=== PATIENT | female | born 1935 | race Caucasian/White ===

== ENCOUNTER → 2016-07-25 | Outpatient (CLI) | payer MEDICARE, BC, OTHER ==
--- NOTE | 2016-07-25 20:09 | REPMRS ---
Patient History The patient states she has not had a clinical breast exam in over a year. Patient is postmenopausal. No known family history of cancer. Digital Woman Screen Mammo: July 25, 2016 - Exam #: [id number] Bilateral CC and MLO view(s) were taken. Technologist: Latoya Grissom, Technologist Prior study comparison: June 23, 2015, digital woman screen mammo performed at [facility] to [facility]. May 13, 2014, digital woman screen mammo performed at [facility]. May 12, 2013, digital woman screen mammo performed at [facility]. FINDINGS: The breast tissue is heterogeneously dense. This may lower the sensitivity of mammography. There is a moderate amount of heterogeneously dense fibroglandular tissue which is fairly symmetric. There is no interval development of dominant mass, architectural distortion, or clustered microcalcification typical of malignancy. There has been no change in the appearance of the mammogram from the prior studies. ASSESSMENT: BI-RADS/ACR category 1 mammogram. Negative. Recommendation Routine screening mammogram of both breasts in 1 year (for women over age 40). This mammogram was interpreted with the aid of an FDA-approved computer-aided dectection system. Electronically Signed By: Pacheco Solis MD 07/25/162007
--- NOTE | 2016-07-27 14:28 | DEXA ---
AP SPINE L1 - L4 0.991 -1.6 0.7 LT FEMUR TOTAL 0.740 -2.1 0.2 RT FEMUR TOTAL 0.730 -2.2 0.1 TOTAL BODY TOTAL OTHER DUAL FEMUR FRAX* ASSESSMENT Risk factors: History of fracture (adult). Secondary osteoporosis ( premature menopause). 10 year probability of fracture Major osteoporotic fracture 25.3 % Hip fracture 8.9 % COMMENTS: There is low bone density of the spine. There is low bone density of the left hip. There is osteoporosis of the right hip. Lumbar scoliosis. The density of the spine has increased 16.3% since the initial exam on 1999. The spine density has increased 4.1% since the most recent exam on 05/13/2014. The density of the left hip has decreased 2.0% since the initial exam on 1999. The density of the left hip has decreased 1.3% since the most recent exam on . The density of the right hip has increased 1.8% since the initial exam on 1999. The density of the right hip has increased 1.7% since the most recent exam on . FOLLOW-UP: Recommendation for the next bone density exam: 2 years. ELIZA
== END ==
LOC: M WHC 12:50
PROVIDERS: ATTEND Family Medicine
DX: Z12.31 Encounter for screening mammogram for malignant neoplasm of breast (principal); M81.0 Age-related osteoporosis without current pathological fracture
CPT/HCPCS: 77080; G0202

== ENCOUNTER → 2017-05-20 | Outpatient (REF) | payer MEDICARE, OTHER ==
[2017-05-20 23:08] LABS: INFLUENZA A AMPLIFICATION NEGATIVE (NEGATIVE); INFLUENZA B AMPLIFICATION NEGATIVE (NEGATIVE)
== END ==
LOC: M LAB REF 09:53
DX: J06.9 Acute upper respiratory infection, unspecified (principal)
CPT/HCPCS: 87502

== ENCOUNTER 2017-06-17 11:56 | Day surgery (SDC) | payer MEDICARE, BC, OTHER ==
[2017-06-17] MEDS ORDERED: LIDOCAINE 2% INJ 100 MG/5 ML SDV (FOR ANES.) As Ordered (12:56)
[2017-06-17] MEDS ORDERED: PROPOFOL 500 MG/50 ML VIAL As Ordered (12:56)
[2017-06-17] MEDS ORDERED: NS 1,000 ML IV (13:00)
== END 2017-06-17 14:09 | disposition home or self-care (01) ==
LOC: M OPP 11:56
DX: Z12.11 Encounter for screening for malignant neoplasm of colon (principal); K64.0 First degree hemorrhoids; K57.30 Diverticulosis of large intestine without perforation or abscess without bleeding; R13.10 Dysphagia, unspecified; K22.2 Esophageal obstruction; K44.9 Diaphragmatic hernia without obstruction or gangrene; I10 Essential (primary) hypertension; Z79.899 Other long term (current) drug therapy; Z79.82 Long term (current) use of aspirin; Z87.891 Personal history of nicotine dependence; Z90.710 Acquired absence of both cervix and uterus; Z88.0 Allergy status to penicillin; Z88.8 Allergy status to other drugs, medicaments and biological substances
CPT/HCPCS: G0121

== ENCOUNTER → 2017-08-07 | Outpatient (CLI) | payer MEDICARE, BC | LOC: M WHC 11:20 | DX: Z12.31 Encounter for screening mammogram for malignant neoplasm of breast (principal); Z78.0 Asymptomatic menopausal state; R92.1 Mammographic calcification found on diagnostic imaging of breast | CPT/HCPCS: 77067 ==

== ENCOUNTER → 2020-01-09 | Outpatient (REF) | payer MEDICARE, BC ==
[~2020-01-09] MED LIST: ASPI81TA26 PO; CALC600T57 PO; CLAR1TAB2 PO; FISH120012 PO; LOSA25TA14 PO; PRESCAP6 PO
[2020-01-09 21:26] LABS: APPEARANCE, URINE CLOUDY (CLEAR); BACTERIA, URINE AUTO NEGATIVE (NEGATIVE); BILIRUBIN, URINE AUTO NEGATIVE (NEGATIVE); BLOOD, URINE BLOOD NEGATIVE (NEGATIVE); COLOR, URINE YELLOW (YELLOW); GLUCOSE, URINE (UA) AUTO NEGATIVE (NEGATIVE); KETONE, URINE AUTO NEGATIVE (NEGATIVE); LEUKOCYTE ESTERASE, URINE AUTO 3+ (NEGATIVE); MUCUS, URINE SMALL (NEGATIVE); NITRITE, URINE AUTO NEGATIVE (NEGATIVE); PROTEIN, URINE AUTO NEGATIVE (NEGATIVE); RBC, URINE AUTO 4 /HPF (0-3); SPECIFIC GRAVITY URINE AUTO 1.021 (1.002-1.035); SQUAMOUS EPITHELIAL CELL UR AU 1 /HPF (0-6); TRANSITIONAL EPITHELIAL AUTO 2 /HPF; UROBILINOGEN, URINE AUTO 0.2 mg/dL (0.0-2.0); WBC, URINE AUTO TNTC /HPF (0-3)
== END ==
LOC: M LAB REF 16:30
PROVIDERS: ATTEND Physician Assistant Medical
DX: N39.0 Urinary tract infection, site not specified (principal)

== ENCOUNTER → 2020-08-10 | Outpatient (CLI) | payer MEDICARE, BC ==
--- NOTE | 2020-08-10 14:07 | DEXAMM ---
INDICATION: M85.9 DISORDER OF BONE DENSITY. COMPARISON: Multiple prior DEXA studies the most recent which is from August 07, 2018 and the most remote 02 December 2003.. TECHNIQUE: Bone density was measured using dual-energy x-ray absorptionmetry (DEXA). FINDINGS: AP SPINE L1-L4 BMD 0.983 g/cm2 Young Adult T-Score -1.7 Age Matched Z-Score 0.2. LT FEMUR, TOTAL BMD 0.712 g/cm2 Young Adult T-Score -2.4 Age Matched Z-Score -0.2. LT NECK BMD 0.661 g/cm2 Young Adult T-Score -2.7 Age Matched Z-Score -0.4. RT FEMUR, TOTAL BMD 0.692 g/cm2 Young Adult T-Score -2.5 Age Matched Z-Score -0.3. RT NECK BMD 0.658 g/cm2 Young Adult T-Score -2.7 Age Matched Z-Score -0.5. IMPRESSION: There is low bone density of the spine. There is osteoporosis of the left hip. There is osteoporosis of the right hip. The density of the spine has increased 15.4% since the initial exam on December 02, 2003. The density of the spine increased 2.3% since most recent exam on increased 2.3% August 07, 2018. The density of the left hip has decreased 5.7% since initial exam on December 02, 2003. The density of the left hip has decreased 0.8% since most recent exam on August 07, 2018. The density of the right hip has decreased 3.5% since the initial exam on December 02, 2003. The density of the right hip has decreased 4.2% since the most recent exam on August 07, 2018. FOLLOW-UP: Recommendation for the next bone density exam: 2 years. <Electronically signed by Pacheco Solis > 08/10/20 [id number]
== END ==
LOC: M WHC 11:18
PROVIDERS: ATTEND Family Medicine
DX: M81.0 Age-related osteoporosis without current pathological fracture (principal)

== ENCOUNTER → 2020-12-21 | Outpatient (REF) | payer MEDICARE, BC ==
[2020-12-21 16:46] LABS: APPEARANCE, URINE CLOUDY (CLEAR); BACTERIA, URINE AUTO NEGATIVE (NEGATIVE); BILIRUBIN, URINE AUTO NEGATIVE (NEGATIVE); BLOOD, URINE BLOOD 1+ (NEGATIVE); COLOR, URINE YELLOW (YELLOW); GLUCOSE, URINE (UA) AUTO NEGATIVE (NEGATIVE); KETONE, URINE AUTO TRACE mg/dL (NEGATIVE); LEUKOCYTE ESTERASE, URINE AUTO 3+ (NEGATIVE); MUCUS, URINE SMALL (NEGATIVE); NITRITE, URINE AUTO NEGATIVE (NEGATIVE); PROTEIN, URINE AUTO 1+ mg/dL (NEGATIVE); RBC, URINE AUTO 7 /HPF (0-3); SPECIFIC GRAVITY URINE AUTO 1.021 (1.002-1.035); SQUAMOUS EPITHELIAL CELL UR AU 0 /HPF (0-6); UROBILINOGEN, URINE AUTO 0.2 mg/dL (0.0-2.0); WBC, URINE AUTO TNTC /HPF (0-3)
== END ==
LOC: M LAB REF 16:12
PROVIDERS: ATTEND Physician Assistant Medical
DX: N39.0 Urinary tract infection, site not specified (principal)

== ENCOUNTER → 2021-07-21 | Outpatient (CLI) | payer MEDICARE, BC, OTHER ==
[~2021-07-21] MED LIST changes: +LOSA25TA13 PO; -LOSA25TA14 PO
[2021-07-21 17:32] LABS: BASO # 0.1 10^3/uL (0.0-0.2); BASO % 0.7 % (0.0-1.0); EOS # 0.1 10^3/uL (0.0-0.5); EOS % 0.9 % (0.0-3.0); HEMATOCRIT 36.1 % (36.0-47.0); HEMOGLOBIN 11.5 g/dl (12.0-15.5); LYMPH % 26.6 % (24.0-44.0); MEAN CORPUSCULAR HEMOGLOBIN 29.2 pg (27.0-33.0); MEAN CORPUSCULAR HGB CONC 31.9 g/dl (32.0-36.5); MEAN CORPUSCULAR VOLUME 91.6 fl (80.0-96.0); MONO # 0.9 10^3/uL (0.0-0.8); MONO % 11.7 % (2.0-8.0); NEUTROPHILS # 4.4 10^3/uL (1.5-8.5); NEUTROPHILS % 59.7 % (36.0-66.0); PLATELET COUNT, AUTOMATED 322 10^3/uL (150-450); RED BLOOD COUNT 3.94 10^6/uL (4.00-5.40); WHITE BLOOD COUNT 7.4 10^3/uL (4.0-10.0)
[2021-07-21 18:03] LABS: ALBUMIN 3.6 GM/DL (3.2-5.2); ALT/SGPT 19 U/L (12-78); BILIRUBIN,TOTAL 0.4 MG/DL (0.2-1.0); BLOOD UREA NITROGEN 16 MG/DL (7-18); CARBON DIOXIDE LEVEL 31 MEQ/L (21-32); CHLORIDE LEVEL 107 MEQ/L (98-107); CREATININE FOR GFR 0.61 MG/DL (0.55-1.30); GLOMERULAR FILTRATION RATE > 60.0 (>32); GLUCOSE, FASTING 84 MG/DL (70-100); NT-PRO BNP 404 PG/ML (<450); POTASSIUM SERUM 4.3 MEQ/L (3.5-5.1); SODIUM LEVEL 141 MEQ/L (136-145)
== END ==
LOC: M LAB 16:22
PROVIDERS: ATTEND Internal Medicine Cardiovascular Disease
DX: R53.82 Chronic fatigue, unspecified (principal); I35.8 Other nonrheumatic aortic valve disorders; I11.9 Hypertensive heart disease without heart failure; R07.2 Precordial pain; I49.3 Ventricular premature depolarization

== ENCOUNTER → 2021-07-24 | Outpatient (CLI) | payer MEDICARE, BC, OTHER | LOC: M RAD 08:47 | PROVIDERS: ATTEND Internal Medicine Cardiovascular Disease | DX: I11.9 Hypertensive heart disease without heart failure (principal) ==

== ENCOUNTER → 2021-08-02 | Outpatient (CLI) | payer MEDICARE, BC, OTHER | LOC: M LABSMTC 11:04 | PROVIDERS: ATTEND Internal Medicine Cardiovascular Disease | DX: Z11.52 Encounter for screening for COVID-19 (principal) ==

== ENCOUNTER → 2021-09-05 | Outpatient (CLI) | payer MEDICARE, BC, OTHER | LOC: M RAD 09:13 | PROVIDERS: ATTEND Family Medicine | DX: R09.89 Other specified symptoms and signs involving the circulatory and respiratory systems (principal); I25.10 Atherosclerotic heart disease of native coronary artery without angina pectoris ==

== ENCOUNTER → 2021-12-08 | Outpatient (CLI) | payer MEDICARE, BC, OTHER ==
[~2021-12-08] MED LIST changes: +ATOR1TAB21; +CARV3.12; +CLOP75TA2; +ISOVUE-370 76% 100ML VIAL As Ordered ONE; +LEVO25TA5; +OMEP40CA5; +SPIR-10
== END ==
LOC: M RAD 14:53
PROVIDERS: ATTEND Physician Assistant
DX: R91.8 Other nonspecific abnormal finding of lung field (principal)
CPT/HCPCS: 71275; Q9967

== ENCOUNTER → 2021-12-15 | Outpatient (CLI) | payer MEDICARE, BC, OTHER ==
[~2021-12-15] MED LIST changes: -ISOVUE-370 76% 100ML VIAL As Ordered ONE
== END ==
LOC: M CARPUL 10:20
PROVIDERS: ATTEND Physician Assistant
DX: I35.0 Nonrheumatic aortic (valve) stenosis (principal)

== ENCOUNTER → 2022-03-21 | Outpatient (CLI) | payer MEDICARE, BC, OTHER | LOC: M WHC 13:20 | PROVIDERS: ATTEND Family Medicine | DX: Z12.31 Encounter for screening mammogram for malignant neoplasm of breast (principal) ==

== ENCOUNTER → 2022-06-06 | Outpatient (CLI) | payer MEDICARE, BC, OTHER ==
[~2022-06-06] MED LIST changes: +CALC-190 PO; +ICAPCAP2; +LUTE1CAP7; +NITR0.4S14
== END ==
LOC: M LABSMTC 09:34
PROVIDERS: ATTEND Anesthesiology
DX: Z01.812 Encounter for preprocedural laboratory examination (principal); Z11.52 Encounter for screening for COVID-19

== ENCOUNTER 2022-06-11 12:42 | Day surgery (SDC) | payer MEDICARE, BC, OTHER ==
[~2022-06-11] VITALS: Ht 152.4 cm; Wt 45.3 kg
[~2022-06-11 12:42] MED LIST changes: +LIDOCAINE 2% 100MG/5ML SDV (FOR ANES.) As Ordered ONE; +NS 1,000 ML IV ONE; +propofoL 200 MG/20 ML VIAL As Ordered ONE
[2022-06-11 14:36] VITALS: BP 136/63
== END 2022-06-11 14:37 | disposition home or self-care (01) ==
LOC: M OPP 12:42
PROVIDERS: ATTEND Internal Medicine Gastroenterology
DX: K29.60 Other gastritis without bleeding (principal); R10.13 Epigastric pain; R13.10 Dysphagia, unspecified; I45.10 Unspecified right bundle-branch block; I10 Essential (primary) hypertension; E03.9 Hypothyroidism, unspecified; Z87.891 Personal history of nicotine dependence; Z95.5 Presence of coronary angioplasty implant and graft; Z79.02 Long term (current) use of antithrombotics/antiplatelets; Z79.82 Long term (current) use of aspirin; Z79.890 Hormone replacement therapy; Z79.899 Other long term (current) drug therapy; Z88.1 Allergy status to other antibiotic agents; Z88.8 Allergy status to other drugs, medicaments and biological substances

== ENCOUNTER → 2022-06-28 | Outpatient (CLI) | payer MEDICARE, BC, OTHER ==
[~2022-06-28] MED LIST changes: -LIDOCAINE 2% 100MG/5ML SDV (FOR ANES.) As Ordered ONE; -NS 1,000 ML IV ONE; -propofoL 200 MG/20 ML VIAL As Ordered ONE
== END ==
LOC: M SLEEP HO 10:55
PROVIDERS: ATTEND Internal Medicine Cardiovascular Disease
DX: I27.81 Cor pulmonale (chronic) (principal)

== ENCOUNTER 2022-07-12 13:37 | Emergency (ER) | payer MEDICARE, BC, OTHER ==
[~2022-07-12] VITALS: Ht 152.4 cm; Wt 45.5 kg
[2022-07-12] MEDS ORDERED: ISOVUE-370 76% 100ML VIAL As Ordered ONE (19:05)
[2022-07-12 19:37] LABS: BASO # 0.1 10^3/uL (0.0-0.2); BASO % 0.8 % (0.0-1.0); EOS # 0.1 10^3/uL (0.0-0.5); EOS % 1.3 % (0.0-3.0); HEMATOCRIT 35.4 % (36.0-47.0); HEMOGLOBIN 11.2 g/dl (12.0-15.5); LYMPH # 2.3 10^3/uL (1.5-5.0); MEAN CORPUSCULAR HEMOGLOBIN 29.2 pg (27.0-33.0); MEAN CORPUSCULAR HGB CONC 31.6 g/dl (32.0-36.5); MEAN CORPUSCULAR VOLUME 92.4 fl (80.0-96.0); MONO # 1.1 10^3/uL (0.0-0.8); MONO % 14.9 % (2.0-8.0); NEUTROPHILS % 52.6 % (36.0-66.0); PLATELET COUNT, AUTOMATED 284 10^3/uL (150-450); RED BLOOD COUNT 3.83 10^6/uL (4.00-5.40); WHITE BLOOD COUNT 7.7 10^3/uL (4.0-10.0)
[2022-07-12 19:56] LABS: ERYTHROCYTE SEDIMENTATION RATE 66 mm/hr (0-30)
[2022-07-12 20:04] LABS: ALBUMIN 3.6 G/DL (3.2-5.2); ALKALINE PHOSPHATASE 149 U/L (46-116); ALT/SGPT 27 U/L (7.0-40); AST/SGOT 43 U/L (<34); BILIRUBIN,DIRECT < 0.1 MG/DL (<0.4); BILIRUBIN,TOTAL 0.5 MG/DL (0.3-1.2); BLOOD UREA NITROGEN 22 MG/DL (9-23); CARBON DIOXIDE LEVEL 26 MMOL/L (20-31); CHLORIDE LEVEL 106 MMOL/L (98-107); CREATININE FOR GFR 0.63 MG/DL (0.55-1.30); GLOMERULAR FILTRATION RATE > 60.0 (>32); GLUCOSE, FASTING 90 MG/DL (74-106); POTASSIUM SERUM 4.9 MMOL/L (3.5-5.1); SODIUM LEVEL 141 MMOL/L (136-145); TOTAL PROTEIN 6.9 G/DL (5.7-8.2)
[2022-07-12 20:19] VITALS: BP 160/78
[2022-07-12] MEDS ORDERED: CLINDAMYCIN 150MG CAPSULE PO ONE (20:30)
[2022-07-12] MEDS ORDERED: ERYTHROMYCIN OPHTH OINT OD ONE (20:30)
[2022-07-12] MEDS ORDERED: ERYT5OIN25 OD (20:37)
[2022-07-12] MEDS ORDERED: CLEO300C2 PO (20:37)
== END 2022-07-12 21:24 | disposition home or self-care (01) ==
LOC: M ED 13:37
DX: L03.213 Periorbital cellulitis (principal); I10 Essential (primary) hypertension; E78.5 Hyperlipidemia, unspecified; K21.9 Gastro-esophageal reflux disease without esophagitis; E03.9 Hypothyroidism, unspecified; Z88.8 Allergy status to other drugs, medicaments and biological substances; Z88.1 Allergy status to other antibiotic agents; Z79.82 Long term (current) use of aspirin; Z79.899 Other long term (current) drug therapy

== ENCOUNTER 2023-06-04 18:41 | Emergency (ER) | payer MEDICARE, BC, OTHER ==
[~2023-06-04] VITALS: Ht 152.4 cm; Wt 44.5 kg
[~2023-06-04 18:41] MED LIST changes: +CLEO300C2 PO; +ERYT5OIN25 OD
[2023-06-04 22:32] LABS: BASO % 0.4 % (0.0-1.0); EOS # 0.1 10^3/uL (0.0-0.5); EOS % 0.8 % (0.0-3.0); HEMATOCRIT 33.9 % (36.0-47.0); HEMOGLOBIN 10.8 g/dl (12.0-15.5); LYMPH # 1.4 10^3/uL (1.5-5.0); LYMPH % 14.9 % (24.0-44.0); MEAN CORPUSCULAR HEMOGLOBIN 30.2 pg (27.0-33.0); MEAN CORPUSCULAR HGB CONC 31.9 g/dl (32.0-36.5); MEAN CORPUSCULAR VOLUME 94.7 fl (80.0-96.0); MONO # 0.9 10^3/uL (0.0-0.8); MONO % 9.2 % (2.0-8.0); NEUTROPHILS # 7.1 10^3/uL (1.5-8.5); NEUTROPHILS % 73.9 % (36.0-66.0); PLATELET COUNT, AUTOMATED 491 10^3/uL (150-450); RED BLOOD COUNT 3.58 10^6/uL (4.00-5.40); WHITE BLOOD COUNT 9.6 10^3/uL (4.0-10.0)
[2023-06-04 23:05] LABS: ALBUMIN 3.7 G/DL (3.2-5.2); ALKALINE PHOSPHATASE 155 U/L (46-116); ALT/SGPT 82 U/L (7.0-40); AST/SGOT 73 U/L (<34); BILIRUBIN,DIRECT 0.1 MG/DL (<0.4); BILIRUBIN,TOTAL 0.5 MG/DL (0.3-1.2); BLOOD UREA NITROGEN 22 MG/DL (9-23); CALCIUM LEVEL 9.2 MG/DL (8.3-10.6); CARBON DIOXIDE LEVEL 29 MMOL/L (20-31); CHLORIDE LEVEL 104 MMOL/L (98-107); CK-MB VALUE MASS < 1.0 NG/ML (<3.6); GLOMERULAR FILTRATION RATE > 60.0 (>32); GLUCOSE, FASTING 108 MG/DL (74-106); POTASSIUM SERUM 4.9 MMOL/L (3.5-5.1); SODIUM LEVEL 138 MMOL/L (136-145); TOTAL PROTEIN 6.7 G/DL (5.7-8.2)
[2023-06-04 23:33] LABS: CPK CREATINE PHOSPHOKINASE 19 U/L (34-145); MB/CK RELATIVE INDEX 5.26 (< OR =4)
[2023-06-05 00:57] VITALS: BP 182/86; TEMP 97.9; O2SAT 99
== END 2023-06-05 00:45 | disposition home or self-care (01) ==
LOC: M ED 18:41
DX: U07.1 COVID-19 (principal); M79.601 Pain in right arm; M54.6 Pain in thoracic spine; I11.0 Hypertensive heart disease with heart failure; I50.9 Heart failure, unspecified; E07.9 Disorder of thyroid, unspecified; K21.9 Gastro-esophageal reflux disease without esophagitis; E78.5 Hyperlipidemia, unspecified; Z95.5 Presence of coronary angioplasty implant and graft; Z79.899 Other long term (current) drug therapy; Z79.82 Long term (current) use of aspirin; Z79.890 Hormone replacement therapy; Z79.02 Long term (current) use of antithrombotics/antiplatelets

== ENCOUNTER → 2023-06-26 | Outpatient (CLI) | payer MEDICARE, BC | LOC: M RAD 13:27 | PROVIDERS: ATTEND Family Medicine | DX: I67.9 Cerebrovascular disease, unspecified (principal) ==

== ENCOUNTER → 2023-07-08 | Outpatient (CLI) | payer MEDICARE, BC | LOC: M PLAIMG 12:25 | PROVIDERS: ATTEND Internal Medicine Cardiovascular Disease | DX: I35.0 Nonrheumatic aortic (valve) stenosis (principal); I50.32 Chronic diastolic (congestive) heart failure; I11.0 Hypertensive heart disease with heart failure ==

== ENCOUNTER → 2023-12-30 | Outpatient (CLI) | payer MEDICARE, BC | LOC: M PLAIMG 12:45 | PROVIDERS: ATTEND Internal Medicine Cardiovascular Disease | DX: I08.3 Combined rheumatic disorders of mitral, aortic and tricuspid valves (principal); Z95.2 Presence of prosthetic heart valve; I27.20 Pulmonary hypertension, unspecified ==

== ENCOUNTER 2024-03-10 16:14 | Emergency (ER) | payer MEDICARE, BC ==
[~2024-03-10] VITALS: Ht 152.4 cm; Wt 45.1 kg
[2024-03-10] MEDS ORDERED: PRED10PA PO (21:08)
[2024-03-10 21:13] VITALS: BP 176/77; TEMP 97.8; O2SAT 99
[2024-03-10] MEDS: predniSONE 10MG TAB PO ONE (21:14)
== END 2024-03-10 21:22 | disposition home or self-care (01) ==
LOC: M ED 16:14
DX: M75.41 Impingement syndrome of right shoulder (principal); I10 Essential (primary) hypertension; E78.5 Hyperlipidemia, unspecified; Z88.1 Allergy status to other antibiotic agents; Z88.8 Allergy status to other drugs, medicaments and biological substances; Z79.1 Long term (current) use of non-steroidal anti-inflammatories (NSAID); Z79.2 Long term (current) use of antibiotics; Z79.52 Long term (current) use of systemic steroids; Z79.899 Other long term (current) drug therapy
CPT/HCPCS: 73030; 99283; J7512

== ENCOUNTER → 2024-03-25 | Outpatient (CLI) | payer MEDICARE, BC ==
[~2024-03-25] MED LIST changes: +PRED10PA PO
== END ==
LOC: M SLEEP HO 03-17 11:25
PROVIDERS: ATTEND Internal Medicine Cardiovascular Disease
DX: I27.20 Pulmonary hypertension, unspecified (principal); G47.9 Sleep disorder, unspecified

== ENCOUNTER 2024-06-07 20:57 | Observation (INO) | payer MEDICARE, BC ==
[~2024-06-07] VITALS: Ht 152.4 cm; Wt 456.8 kg
[~2024-06-07 20:57] MED LIST changes: -ATOR1TAB21; +ATOR1TAB21 PO; -CLOP75TA2; +CLOP75TA2 PO; -LEVO25TA5; +LEVO25TA5 PO; -NITR0.4S14; +NITR0.4S14 SL; -OMEP40CA5; +OMEP40CA5 PO; -SPIR-10; +SPIR-10 PO
[2024-06-07 21:54] LABS: BASO # 0.1 10^3/uL (0.0-0.2); BASO % 0.4 % (0.0-1.0); EOS % 0.1 % (0.0-3.0); HEMATOCRIT 35.3 % (36.0-47.0); HEMOGLOBIN 11.6 g/dl (12.0-15.5); LYMPH # 0.2 10^3/uL (1.5-5.0); LYMPH % 1.5 % (24.0-44.0); MEAN CORPUSCULAR HEMOGLOBIN 28.6 pg (27.0-33.0); MEAN CORPUSCULAR HGB CONC 32.9 g/dl (32.0-36.5); MEAN CORPUSCULAR VOLUME 86.9 fl (80.0-96.0); MONO # 0.9 10^3/uL (0.0-0.8); MONO % 6.7 % (2.0-8.0); NEUTROPHILS # 12.5 10^3/uL (1.5-8.5); NEUTROPHILS % 90.4 % (36.0-66.0); PLATELET COUNT, AUTOMATED 367 10^3/uL (150-450); RED BLOOD COUNT 4.06 10^6/uL (4.00-5.40); WHITE BLOOD COUNT 13.9 10^3/uL (4.0-10.0)
[2024-06-07 22:25] LABS: LIPASE 18 U/L (12-53)
[2024-06-07 22:43] LABS: ALBUMIN 3.3 G/DL (3.2-5.2); ALKALINE PHOSPHATASE 139 U/L (35-104); ALT/SGPT 17 U/L (7.0-40); AST/SGOT 29 U/L (<34); BILIRUBIN,DIRECT 0.2 MG/DL (<0.4); BILIRUBIN,TOTAL 0.8 MG/DL (0.3-1.2); BLOOD UREA NITROGEN 23 MG/DL (9-23); CALCIUM LEVEL 8.4 MG/DL (8.3-10.6); CARBON DIOXIDE LEVEL 28 MMOL/L (20-31); CHLORIDE LEVEL 104 MMOL/L (98-107); CREATININE FOR GFR 0.69 MG/DL (0.55-1.30); GLOMERULAR FILTRATION RATE > 60.0 (>32); GLUCOSE, FASTING 132 MG/DL (74-106); MAGNESIUM LEVEL 1.9 MG/DL (1.8-2.4); POTASSIUM SERUM 4.4 MMOL/L (3.5-5.1); SODIUM LEVEL 142 MMOL/L (136-145); TOTAL PROTEIN 6.5 G/DL (5.7-8.2)
[2024-06-07] MEDS: NS (Normal Saline) 0.9% 1,000 ML IV SCH ×2 (23:26→23:45)
[2024-06-08] MEDS ORDERED: MOM 30ML SUSPENSION UDC PO PRN (00:55)
[2024-06-08 01:35] LABS: APPEARANCE, URINE HAZY (CLEAR); BACTERIA, URINE AUTO 1+ (NEGATIVE); BILIRUBIN, URINE AUTO NEGATIVE (NEGATIVE); BLOOD, URINE BLOOD NEGATIVE (NEGATIVE); COLOR, URINE YELLOW (YELLOW); GLUCOSE, URINE (UA) AUTO NEGATIVE (NEGATIVE); KETONE, URINE AUTO TRACE mg/dL (NEGATIVE); LEUKOCYTE ESTERASE, URINE AUTO NEGATIVE (NEGATIVE); MUCUS, URINE SMALL (NEGATIVE); NITRITE, URINE AUTO NEGATIVE (NEGATIVE); PROTEIN, URINE AUTO 1+ mg/dL (NEGATIVE); RBC, URINE AUTO 6 /HPF (0-3); SPECIFIC GRAVITY URINE AUTO 1.023 (1.002-1.035); SQUAMOUS EPITHELIAL CELL UR AU 0 /HPF (0-6); UROBILINOGEN, URINE AUTO 0.2 mg/dL (0.0-2.0); WBC, URINE AUTO 1 /HPF (0-3)
[2024-06-08] MEDS ORDERED: PRES10CA2 PO (01:38)
[2024-06-08] MEDS ORDERED: LOSA50TA28 PO (01:38)
[2024-06-08] MEDS ORDERED: HOME MED LIST COMPLETE! XX SCH (01:40)
[2024-06-08] MEDS: LEVOTHYROXINE 25MCG TABLET (0.025MG) PO SCH (06:14)
[2024-06-08 08:27] LABS: ALKALINE PHOSPHATASE 121 U/L (35-104); ALT/SGPT 16 U/L (7.0-40); AST/SGOT 42 U/L (<34); BILIRUBIN,TOTAL 0.6 MG/DL (0.3-1.2); BLOOD UREA NITROGEN 21 MG/DL (9-23); CALCIUM LEVEL 8.3 MG/DL (8.3-10.6); CARBON DIOXIDE LEVEL 26 MMOL/L (20-31); CHLORIDE LEVEL 106 MMOL/L (98-107); CREATININE FOR GFR 0.61 MG/DL (0.55-1.30); GLOMERULAR FILTRATION RATE > 60.0 (>32); GLUCOSE, FASTING 87 MG/DL (74-106); POTASSIUM SERUM 4.4 MMOL/L (3.5-5.1); SODIUM LEVEL 141 MMOL/L (136-145); TOTAL PROTEIN 6.1 G/DL (5.7-8.2)
[2024-06-08 08:42] LABS: HEMATOCRIT 33.5 % (36.0-47.0); HEMOGLOBIN 10.9 g/dl (12.0-15.5); MEAN CORPUSCULAR HEMOGLOBIN 28.2 pg (27.0-33.0); MEAN CORPUSCULAR HGB CONC 32.5 g/dl (32.0-36.5); MEAN CORPUSCULAR VOLUME 86.8 fl (80.0-96.0); PLATELET COUNT, AUTOMATED 281 10^3/uL (150-450); RED BLOOD COUNT 3.86 10^6/uL (4.00-5.40); WHITE BLOOD COUNT 13.7 10^3/uL (4.0-10.0)
[2024-06-08] MEDS: SPIRONOLACTONE 12.5MG PER 1/2 TABLET PO SCH (08:49)
[2024-06-08] MEDS: DOCUSATE SODIUM 100MG CAPSULE PO SCH (08:49)
[2024-06-08] MEDS: ENOXAPARIN 40MG/0.4ML SYRINGE (J1650 PER 10MG) SC SCH (08:49)
[2024-06-08] MEDS: ASPIRIN 81MG ENTERIC TABLET PO SCH (08:49)
[2024-06-08] MEDS: CLOPIDOGREL 75 MG TAB PO SCH (08:49)
[2024-06-08 17:02] VITALS: BP 167/67; TEMP 97.9; O2SAT 98
[2024-06-08 20:14] VITALS: BP 128/54; TEMP 97.2; O2SAT 92
[2024-06-08] MEDS: ATORVASTATIN 20 MG TAB PO SCH (20:58)
[2024-06-08] MEDS: LOSARTAN 50MG TABLET PO SCH (20:59)
[2024-06-09 04:58] VITALS: BP 165/61; TEMP 97.9; O2SAT 96
[2024-06-09 06:11] LABS: BASO % 0.4 % (0.0-1.0); EOS # 0.1 10^3/uL (0.0-0.5); HEMOGLOBIN 10.3 g/dl (12.0-15.5); LYMPH # 1.3 10^3/uL (1.5-5.0); LYMPH % 18.6 % (24.0-44.0); MEAN CORPUSCULAR HEMOGLOBIN 28.3 pg (27.0-33.0); MEAN CORPUSCULAR HGB CONC 32.2 g/dl (32.0-36.5); MEAN CORPUSCULAR VOLUME 87.9 fl (80.0-96.0); MONO # 1.4 10^3/uL (0.0-0.8); MONO % 19.1 % (2.0-8.0); NEUTROPHILS # 4.4 10^3/uL (1.5-8.5); NEUTROPHILS % 60.2 % (36.0-66.0); PLATELET COUNT, AUTOMATED 308 10^3/uL (150-450); RED BLOOD COUNT 3.64 10^6/uL (4.00-5.40); WHITE BLOOD COUNT 7.2 10^3/uL (4.0-10.0)
[2024-06-09 06:37] LABS: BLOOD UREA NITROGEN 17 MG/DL (9-23); CALCIUM LEVEL 8.2 MG/DL (8.3-10.6); CARBON DIOXIDE LEVEL 28 MMOL/L (20-31); CHLORIDE LEVEL 106 MMOL/L (98-107); CREATININE FOR GFR 0.48 MG/DL (0.55-1.30); GLOMERULAR FILTRATION RATE > 60.0 (>32); GLUCOSE, FASTING 86 MG/DL (74-106); MAGNESIUM LEVEL 2.1 MG/DL (1.8-2.4); POTASSIUM SERUM 4.2 MMOL/L (3.5-5.1); SODIUM LEVEL 140 MMOL/L (136-145)
[2024-06-09] MEDS: OMEPRAZOLE 20MG CAP PO SCH (08:16)
[2024-06-09 10:54] VITALS: BP 160/60
[2024-06-09 10:59] VITALS: BP 160/60
[2024-06-09 12:00] VITALS: BP 150/55; TEMP 97.5; O2SAT 94
[2024-06-09 12:17] VITALS: BP 157/61
[2024-06-09 13:42] VITALS: BP_SYST 123; BP_SYST 126; BP_SYST 146; BP_DIAS 47; BP_DIAS 53; BP_DIAS 54
== END 2024-06-09 15:30 | disposition home or self-care (01) ==
LOC: M ED 20:57 → EDBD 20:57 → M ED INP 20:58 → M MS5PR 06-08 17:02
PROVIDERS: ADMIT Family Medicine; ATTEND Internal Medicine
DX: K52.9 Noninfective gastroenteritis and colitis, unspecified (principal); E86.0 Dehydration; R53.1 Weakness; I95.0 Idiopathic hypotension; R63.8 Other symptoms and signs concerning food and fluid intake; D72.829 Elevated white blood cell count, unspecified; R50.9 Fever, unspecified; I10 Essential (primary) hypertension; I35.0 Nonrheumatic aortic (valve) stenosis; Z95.2 Presence of prosthetic heart valve; I25.10 Atherosclerotic heart disease of native coronary artery without angina pectoris; Z95.5 Presence of coronary angioplasty implant and graft; E03.9 Hypothyroidism, unspecified; K21.9 Gastro-esophageal reflux disease without esophagitis; I45.10 Unspecified right bundle-branch block; Z88.0 Allergy status to penicillin; Z88.8 Allergy status to other drugs, medicaments and biological substances; Z79.899 Other long term (current) drug therapy; Z79.82 Long term (current) use of aspirin; Z79.01 Long term (current) use of anticoagulants
CPT/HCPCS: 36415; 74021; 80048; 80053; 80076; 81001; 83690; 83735; 85025; 85027; 93005; 93041; 96360; 96361; 96372; 97161; 97530; 99285; G0378; J1650

== ENCOUNTER → 2024-07-20 | Outpatient (CLI) | payer MEDICARE, BC ==
[~2024-07-20] MED LIST changes: +LOSA50TA28 PO; +PRES10CA2 PO
== END ==
LOC: M SLEEP 20:00
PROVIDERS: ATTEND Physician Assistant
DX: G47.33 Obstructive sleep apnea (adult) (pediatric) (principal)

== ENCOUNTER → 2024-08-12 | Outpatient (CLI) | payer MEDICARE, BC | LOC: M SLEEP 20:00 | PROVIDERS: ATTEND Physician Assistant | DX: G47.33 Obstructive sleep apnea (adult) (pediatric) (principal) ==

== ENCOUNTER → 2025-02-11 | Outpatient (CLI) | payer MEDICARE, BC | LOC: M EKG 14:14 | PROVIDERS: ATTEND Nurse Practitioner Family | DX: I49.3 Ventricular premature depolarization (principal) ==